=== PATIENT | male | born 1980 | race Caucasian/White ===

== ENCOUNTER 2019-02-05 20:47 | Emergency (ER) | payer OTHER ==
[2019-02-05 20:54] VITALS: BP 132/84; PULSE 95; RESP 18; TEMP 97.8
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
== END 2019-02-05 21:58 | disposition home or self-care (01) ==
LOC: EC 20:47
DX: L25.9 Unspecified contact dermatitis, unspecified cause (principal); F17.200 Nicotine dependence, unspecified, uncomplicated
CPT/HCPCS: 99282